=== PATIENT | female | born 1980 | race Two or more races ===

== ENCOUNTER 2019-12-06 14:33 | Emergency (ER) | payer SELFPAY ==
[~2019-12-06] VITALS: Ht 152.4 cm; Wt 75.0 kg
--- NOTE | 2019-12-06 16:17 | PHYS DOC ---
Past Medical History Past Medical History: Other Additional Past Medical Histor: heart murmur Past Surgical History: No Surgical History Smoking Status: Never Smoker Alcohol Use: None General Adult EDM: Chief Complaint: SHORTNESS OF BREATH HPI: HPI: The history was obtained from the patient. Patient is a female with PMH heart murmur who presents with a chief complaint of back pain. Patient states she has had upper thoracic back pain intermittently over the past several days. She notes she is diagnosed with coronavirus 9 days ago. She does note a mild dry c ough. Denies any objective fevers. She denies exertional shortness of breath or chest pain at baseline. She denies history of coronary artery disease. She denies any tobacco abuse. She denies any syncope. She denies any history of blood clots in legs or lungs. She has tried Tylenol with some relief at home. Denies nausea or vomiting. Denies diaphoresis. States that the pain is worse when she coughs. Patient denies any history of immobilization greater than 48 hours, recent hospitalizations, recent surgery, recent trauma, , oral contraceptive usage, hormone replacement therapy, air travel greater than 8 hours, recent infectious disease, or general deterioration of their overall condition. Review of Systems: Review of Systems: Constitutional: Denies fever or chills. [] Eyes: Denies change in visual acuity. [] HENT: Denies nasal congestion or sore throat. [] Respiratory: Denies cough or shortness of breath. [] Cardiovascular: Denies chest pain or edema. [] GI: Denies abdominal pain, nausea, vomiting, bloody stools or diarrhea. [] : Denies dysuria. [] Musculoskeletal: Denies back pain or joint pain. [] Integument: Denies rash. [] Neurologic: Denies headache, focal weakness or sensory changes. [] Endocrine: Denies polyuria or polydipsia. [] Lymphatic: Denies swollen glands. [] Psychiatric: Denies depression or anxiety. [] Heart Score: HEART Score for Chest Pain: HEART Score for Chest Pain Response (Comments) Value History Slighlty/Non-Suspicious 0 ECG Nonspecific Repolarizatio 1 Age < 45 0 Risk Factors No Risk Factors 0 Troponin < Normal Limit 0 Total 1 Risk Factors: Risk Factors: DM, Current or recent (<one month) smoker, HTN, HLP, family history of CAD, obesity. Risk Scores: Score 0 - 3: 2.5% MACE over next 6 weeks - Discharge Home Score 4 - 6: 20.3% MACE over next 6 weeks - Admit for Clinical Observation Score 7 - 10: 72.7% MACE over next 6 weeks - Early Invasive Strategies Physical Exam: PE: Constitutional: Well developed, well nourished, no acute distress, non-toxic appearance. [] HENT: Normocephalic, atraumatic, bilateral external ears normal, oropharynx moist, no oral exudates, nose normal. [] Eyes: PERRLA, EOMI, conjunctiva normal, no discharge. [] Neck: Normal range of motion, no tenderness, supple, no stridor. [] Cardiovascular:Heart rate regular rhythm, no murmur [] Lungs & Thorax: Bilateral breath sounds clear to auscultation [] Abdomen: Bowel sounds normal, soft, no tenderness, no masses, no pulsatile masses. [] Skin: Warm, dry, no erythema, no rash. [] Back: No tenderness, no CVA tenderness. [] Extremities: No tenderness, no cyanosis, no clubbing, ROM intact, no edema. [] Neurologic: Alert and oriented X 3, normal motor function, normal sensory functi on, no focal deficits noted. [] Psychologic: Affect normal, judgement normal, mood normal. [] Current Patient Data: Labs: Laboratory Tests Test 12/06/19 16:22 White Blood Count 8.5 x10^3/uL Red Blood Count 4.41 x10^6/uL Hemoglobin 14.2 g/dL Hematocrit 40.8 % Mean Corpuscular Volume 92 fL Mean Corpuscular Hemoglobin 32 pg Mean Corpuscular Hemoglobin Concent 35 g/dL Red Cell Distribution Width 12.9 % Platelet Count 265 x10^3/uL Neutrophils (%) (Auto) 75 % Lymphocytes (%) (Auto) 21 % Monocytes (%) (Auto) 3 % Eosinophils (%) (Auto) 0 % Basophils (%) (Auto) 1 % Neutrophils # (Auto) 6.4 x10^3/uL Lymphocytes # (Auto) 1.8 x10^3/uL Monocytes # (Auto) 0.2 x10^3/uL Eosinophils # (Auto) 0.0 x10^3/uL Basophils # (Auto) 0.0 x10^3/uL D-Dimer (Sangita) < 0.27 ug/mlFEU Sodium Level 139 mmol/L Potassium Level 4.1 mmol/L Chloride Level 102 mmol/L Carbon Dioxide Level 26 mmol/L Anion Gap 11 Blood Urea Nitrogen 8 mg/dL Creatinine 0.7 mg/dL Estimated GFR (Cockcroft-Gault) 93.6 Glucose Level 106 mg/dL Calcium Level 9.2 mg/dL Troponin I Quantitative < 0.017 ng/mL Serum Test, Qualitative Negative Current Medications Medications (Trade) Dose Ordered Sig/Abena Route PRN Reason Start Time Stop Time Status Last Admin Dose Admin Ketorolac Tromethamine (Toradol 15mg Vial) 15 mg 1X ONCE IVP 12/06/19 17:15 12/06/19 17:17 DC Ketorolac Tromethamine (Toradol 30mg Vial) 30 mg STK-MED ONCE .ROUTE 12/06/19 17:23 12/06/19 17:23 DC Vital Signs: Vital Signs Date Time Temp Pulse Resp B/P (MAP) Pulse Ox O2 Delivery O2 Flow Rate FiO2 12/06/19 15:52 98.5 91 16 123/87 (99) 100 Room Air 98.5 EKG: EKG: EKG normal sinus rhythm. Ventricular 90 bpm. Left axis noted. Nonspecific interventricular conduction delay present. No acute ST segment elevation appreciated. Flipped T waves noted in lead III. [] Radiology/Procedures: Radiology/Procedures: [] Course & Med Decision Making: Course & Med Decision Making Pertinent Labs and Imaging studies reviewed. (See chart for details) Patient is a well-appearing 39-year-old female who presents with a chief complaint of bilateral thoracic discomfort over the past several days. She notes she was diagnosed with coronavirus approximately 1 week ago. Initial vital signs unremarkable. Initial EKG without ischemic changes. Basic labs were obtained and were grossly remarkable. Troponin negative. D-dimer negative. Overall low suspicion for ACS. Low risk heart score. PERC negative with negative d-dimer. I do feel her symptoms could be related to her recent viral illness. She did get relief with intramuscular Toradol. I do feel outpatient management is appropriate. Return precautions discussed and understood. She is agreeable this plan. Instructed to follow-up with her primary care physician in the next 2 to 3 days. Stable for discharge home. []COVID-19 CRITERIA: The patient was evaluated during the global COVID-19 pandemic, and that diagnosis was suspected/considered upon their initial presentation. Their evaluation, treatment and testing was consistent with current guidelines for patients who present with complaints or symptoms that may be related to COVID-19. Jaime Disclaimer: Jaime Disclaimer: This electronic medical record was generated, in whole or in part, using a voice recognition dictation system. Departure Departure Disposition: HOME, SELF-CARE Condition: GOOD Referrals: NO PCP (PCP) Additional Instructions: [facility] [address] [place] [address] [facility] [address] [place] [address] [facility] [address] [facility] [place] [address] [facility] [address] [place] [address] [facility] [address] [place] [address] [address] [place] [address] [facility] [address] [place] [address] [facility] [place] [address] [place] [address] [facility] [address] [place] [address] [facility] [address] [place] [address] Justicifation of Admission Dx: Justifications for Admission: Justification of Admission Dx: N/A COVID-19 Assessment: COVID-19 Patient Risks: Age 65 or older: No Sign of co-morbidity: No Exp to person + for COVID: Yes (COVID + Prior to arrival) Exp to PUI: No Travel from affected area: No Lower respiratory symptoms: Yes Fever: No Other: No PPE Use: Full PPE with N95 mask or PAPR: Yes SHRAVAN RAPHAEL DO Dec 06, 2019 16:17
[2019-12-06 16:37] LABS: BASO % 1 % (0-3); EOS % 0 % (0-3); HEMATOCRIT 40.8 % (36.0-47.0); HEMOGLOBIN 14.2 g/dL (12.0-15.5); LYMPH # 1.8 x10^3/uL (1.0-4.8); LYMPH % 21 % (24-48); MEAN CORPUSCULAR HEMOGLOBIN 32 pg (25-35); MEAN CORPUSCULAR HGB CONC 35 g/dL (31-37); MEAN CORPUSCULAR VOLUME 92 fL (79-100); MONO # 0.2 x10^3/uL (0.0-1.1); MONO % 3 % (0-9); NEUT # 6.4 x10^3/uL (1.8-7.7); NEUT % 75 % (31-73); PLATELET COUNT 265 x10^3/uL (140-400); RED BLOOD COUNT 4.41 x10^6/uL (3.50-5.40); RED CELL DISTRIBUTION WIDTH 12.9 % (11.5-14.5); WHITE BLOOD COUNT 8.5 x10^3/uL (4.0-11.0)
[2019-12-06 16:45] LABS: CALCIUM 9.2 mg/dL (8.5-10.1); CREATININE 0.7 mg/dL (0.6-1.0); GFR 93.6; POTASSIUM 4.1 mmol/L (3.5-5.1)
[2019-12-06 16:51] LABS: PREG TEST PT QUAL NEGATIVE (NEG)
--- NOTE | 2019-12-06 17:05 | RAD ---
CHEST AP ONLY Clinical indications: Reason: CP, COUGH. HX OF COVID19 / COMPARISON: None available. Findings: No acute lung infiltrate or pleural effusion or pulmonary edema or lung mass or pneumothorax is seen. The heart size, pulmonary vasculature, mediastinum and both mary are unremarkable. Impression: No acute radiographic abnormality is seen. Electronically signed by: Uriel Kiser MD (12/06/2019 5:01 PM) [id number]
[2019-12-06] MEDS ORDERED: KETOROLAC 15 MG/ML VIAL. IVP ONE (17:15)
[2019-12-06] MEDS ORDERED: KETOROLAC 30 MG/ML VIAL. ONE (17:23)
[2019-12-06] MEDS ORDERED: KETOROLAC 30 MG/ML VIAL. IM ONE (17:45)
--- NOTE | 2019-12-06 17:45 | EKG ---
[facility] [address] [place] [address] Test Date: 2019-12-06 Test Time: 17:28:06 Pat Name: EMILY CARTER Department: Room: Gender: F [employer]rom[employer] Manager: : [id number] Requested By: SHRAVAN RAPHAEL Order Number: [id number] Reading MD: Measurements Intervals [place] Rate: 90 P: 26 IA: 170 QRS: -48 QRSD: 100 T: 13 QT: 340 QTc: 420 Interpretive Statements SINUS RHYTHM ABNORMAL LEFT AXIS DEVIATION R-S TRANSITION ZONE IN V LEADS DISPLACED TO THE LEFT S1,S2,S3 PATTERN LEFT ANTERIOR FASCICULAR BLOCK QRS(T) CONTOUR ABNORMALITY CONSIDER INFERIOR MYOCARDIAL DAMAGE ABNORMAL ECG RI6.01 No previous ECG available for comparison
[2019-12-06 17:51] VITALS: BP 118/80
== END 2019-12-06 18:07 | disposition home or self-care (01) ==
LOC: ER 14:33
DX: M54.6 Pain in thoracic spine (principal); R05 Cough
CPT/HCPCS: 36415; 71045; 80048; 84484; 84703; 85025; 85379; 93005; 96372; 99285; J1885